=== PATIENT | female | born 1990 | race Caucasian/White ===

== ENCOUNTER → 2020-07-02 11:01 | Outpatient (REF) | payer MEDICAID, SELFPAY ==
--- NOTE | 2020-07-02 11:19 | ECG_ITS ---
Test Reason : QT PROLONGATION Blood Pressure : / mmHG Vent. Rate : 056 BPM Atrial Rate : 056 BPM P-R Int : 142 ms QRS Dur : 078 ms QT Int : 446 ms P-R-T Axes : 045 081 065 degrees QTc Int : 430 ms Sinus bradycardia with sinus arrhythmia Otherwise normal ECG When compared with ECG of 03-DEC-2014 09:52, Vent. rate has decreased BY 64 BPM T wave inversion no longer evident in Inferior leads Referred By: Mitzy Todd Electronically Signed By:ONEL HERNANDEZ MD
== END ==
LOC: HO.CARD 11:01
PROVIDERS: Visit Provider Family Medicine
DX: R94.31 Abnormal electrocardiogram [ECG] [EKG] (principal); Z79.899 Other long term (current) drug therapy
CPT/HCPCS: 93005